=== PATIENT | female | born 1970 | race Caucasian/White ===

== ENCOUNTER 2018-05-09 17:49 | Emergency (ER) | payer OTHER, MEDICAID ==
[2018-05-09 18:06] VITALS: BMI 20.9
[2018-05-09 18:14] VITALS: O2SAT 98
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
[2018-05-09 19:37] VITALS: BP 148/98; PULSE 68; RESP 17
[2018-05-09 20:31] VITALS: TEMP 98.2
== END 2018-05-09 20:05 | disposition home or self-care (01) ==
LOC: ED 17:49
DX: M54.2 Cervicalgia (principal); I10 Essential (primary) hypertension; F17.210 Nicotine dependence, cigarettes, uncomplicated
CPT/HCPCS: 96372; 99284; J1885